=== PATIENT | male | born 1995 | race Caucasian/White ===

== ENCOUNTER 2022-07-10 03:26 | Emergency (ER) | payer BC, SELFPAY ==
[2022-07-10 03:33] VITALS: BP 131/89; PULSE 76; RESP 16; TEMP 36.1; O2SAT 97
--- NOTE | 2022-07-10 03:58 | ED.GENADULT ---
HPI - General Adult General Time Seen by Provider: 03:59 Date Seen: 07/10/22 Chief complaint: Chest Pain Stated complaint: Chest Pain Time Seen by Provider: 07/10/22 03:44 Source: patient Mode of arrival: ambulatory Limitations: no limitations History of Present Illness HPI narrative: 27-year-old male who comes in today with chest pain. Patient developed left-sided chest pain about 2 hours ago that radiates straight through into the back. He describes this as sharp and stabbing. Fairly constant, not worse with breathing or movement. Did have some nausea but no vomiting. No cough, no fever. Has not taken any medication for this. Denies abdominal pain. Family history of diabetes, hypertension, and ?heart problems?. History of smoking but currently vapes. Related Data Allergies Allergy/AdvReac Type Severity Reaction Status Date / Time amoxicillin Allergy Mild Verified 07/10/22 03:36 Review of Systems Status of ROS: Reports: 10 or more systems reviewed and unremarkable except as noted in History and below PFSH PFSH Social History Smoking Status: Never smoker Do you use any of these nicotine containing products: None Second hand tobacco smoke exposure: No How often do you have a drink containing alcohol: monthly or less How often do you have six or more drinks on one occasion: Never AUDIT-C Alcohol total score: 1 Non-prescribed substance use: marijuana (any form) service: No Exam Const: Vital Signs, click to edit/add: Vital Signs - 24 hr 07/10/22 03:33 07/10/22 06:00 07/10/22 05:00 Temperature 97.0 F L Pulse Rate [Left P ulse Oximeter] 76 66 66 Respiratory Rate 16 16 16 Blood Pressure [Ri ght Upper Arm] 131/89 114/78 113/69 Pulse Oximetry 97 98 97 Oxygen Delivery Me thod Room Air Room Air Room Air 07/10/22 04:40 07/10/22 04:00 Temperature Pulse Rate [Left P ulse Oximeter] 75 81 Respiratory Rate 16 16 Blood Pressure [Ri ght Upper Arm] 121/69 138/96 H Pulse Oximetry 95 97 Oxygen Delivery Me thod Room Air Room Air Documenting provider has reviewed patient's vital signs: yes Common normals: no apparent distress, oriented x3, alert and well nourished HENMT: Common normals: normocephalic, head/scalp atraumatic, external ears normal and external nose normal Head and scalp: normocephalic and atraumatic Nose: external nose normal External ear: external ears normal Eye: Common normals: PERRL and conjunctivae normal Conjunctiva: conjunctiva(e) normal Pupil: PERRL Neck & C-Spine: Common normals: full ROM, no lymphadenopathy and supple Chest: Common normals: palpation of chest normal Resp: Common normals: normal respiratory effort and clear to auscultation bilaterally Auscultation: clear to auscultation bilaterally Cardio: Common normals: regular rate, regular rhythm and no murmurs Rate: regular rate Rhythm: regular rhythm GI: Common normals: Normal to inspection, nondistended, normoactive bowel sounds present, soft to palpation and non-tender Palpation: soft : Common normals: no CVA tenderness Bladder/kidney exam: no CVA tenderness Back & Pelvis: Common normals: no CVA tenderness and thoracic and lumbar spine normal to inspection Extremity: Common normals: normal to inspection, full ROM and no pedal edema Neuro: Common normals: oriented x3, CN's II-XII intact bilaterally and no focal motor deficits Sensorium/orientation: alert Psych: Common normals: mental status grossly normal Skin: Common normals: no rashes or lesions noted General skin exam: no rashes or lesions noted Course Course Hospital Course: Patient seen examined, prior records reviewed. Differential diagnosis includes but not limited to acute coronary syndrome, pulmonary embolism, pneumonia, pericarditis/myocarditis, musculoskeletal pain, hemothorax, pneumothorax. Patient with left-sided chest pain radiating to the back. Initial EKG is reassuring, no tenderness on exam. Perc negative. Labs and x-ray ordered. Reevaluation(s) Reevaluation #1: Labs are reassuring including negative troponin. Chest x-ray is pending. Plan on repeat troponin in about 1 hour and if that is negative, patient is stable for discharge with outpatient follow-up Time: 05:08 Reevaluation #2: Patient recheck, pain is resolved. Discussed plan for repeat troponin and discharge if that is reassuring. Patient is agreeable. Time: 05:41 Reevaluation #3: Repeat troponin is still negative and patient remains pain-free. Patient is stable for discharge with outpatient follow-up with primary care next week. Time: 06:25 Vital Signs Vital signs: Initial Vital Signs Temperature 97.0 F L 07/10/22 03:33 Temperature Source Temporal Artery Scan 07/10/22 03:33 Pulse Rate 76 07/10/22 03:33 Pulse Rhythm 07/10/22 03:33 Respiratory Rate 16 07/10/22 03:33 Blood Pressure 131/89 07/10/22 03:33 Blood Pressure Mean 103 07/10/22 03:33 Blood Pressure Position Sitting 07/10/22 03:33 Pulse Oximetry 97 07/10/22 03:33 Oxygen Delivery Method 07/10/22 03:33 Vital Signs Temperature 97.0 F L 07/10/22 03:33 Pulse Rate 76 07/10/22 03:33 Respiratory Rate 16 07/10/22 03:33 Blood Pressure 131/89 07/10/22 03:33 Pulse Oximetry 97 07/10/22 03:33 Oxygen Delivery Method 07/10/22 03:33 Temperature 97.0 F L 07/10/22 03:33 Pulse Rate 66 07/10/22 06:00 Respiratory Rate 16 07/10/22 06:00 Blood Pressure 114/78 07/10/22 06:00 Pulse Oximetry 98 07/10/22 06:00 Oxygen Delivery Method 07/10/22 06:00 Medical Decision Making Medical Records Medical records reviewed: Yes I reviewed the patient's medical records Lab Data Lab results reviewed: Yes I reviewed the patient's lab results Labs: Lab Results 07/10/22 07/10/22 07/10/22 Range/Units 03:55 04:00 04:00 WBC 10.17 (4.50-11.00) K/uL RBC 5.44 (4.30-5.90) m/uL Hgb 15.7 (13.5-17.5) gm/dL Hct 47.1 (37.0-53.0) % MCV 87 (80-100) fL MCH 29 (26-34) pg MCHC 33 (32-36) gm/dL RDW Coeff of Ángela 11.9 (11.5-15.5) % Plt Count 286 (140-440) K/uL Neut % (Auto) 59.5 (42.0-72.0) % Lymph % (Auto) 30.3 (20-44) % [place] % (Auto) 8.0 (0.0-11.0) % Eos % (Auto) 1.7 (0.0-7.0) % Baso % (Auto) 0.4 (0.0-3.0) % Neut # (Auto) 6.06 (1.7-7.0) K/uL Lymph # (Auto) 3.08 H (0.90-2.90) K/uL [place] # (Auto) 0.80 (0.00-0.90) K/UL Eos # (Auto) 0.17 (0.00-0.50) K/uL Baso # (Auto) 0.04 (0.00-0.30) K/uL Abs Immat Gran (auto) 0.01 (0.00-0.30) K/uL Sodium 140 (135-149) mmol/L Potassium 4.0 (3.6-5.1) mmol/L Chloride 106 (96-114) mmol/L Carbon Dioxide 26 (20-32) mmol/L BUN 15 (5-24) mg/dL Creatinine 0.9 (0.5-1.5) mg/dL Estimated GFR 120 ml/min Glucose 100 (60-115) mg/dL Calcium 9.2 (8.4-10.6) mg/dL C-Reactive Protein 0.7 (0.5-1.0) mg/dL NT-Pro-B Natriuret Pep 17 (0-125) PG/mL POC Troponin I 0.00 L (0.01-0.04) ng/ml 07/10/22 Range/Units 06:00 WBC (4.50-11.00) K/uL RBC (4.30-5.90) m/uL Hgb (13.5-17.5) gm/dL Hct (37.0-53.0) % MCV (80-100) fL MCH (26-34) pg MCHC (32-36) gm/dL RDW Coeff of Ángela (11.5-15.5) % Plt Count (140-440) K/uL Neut % (Auto) (42.0-72.0) % Lymph % (Auto) (20-44) % [place] % (Auto) (0.0-11.0) % Eos % (Auto) (0.0-7.0) % Baso % (Auto) (0.0-3.0) % Neut # (Auto) (1.7-7.0) K/uL Lymph # (Auto) (0.90-2.90) K/uL [place] # (Auto) (0.00-0.90) K/UL Eos # (Auto) (0.00-0.50) K/uL Baso # (Auto) (0.00-0.30) K/uL Abs Immat Gran (auto) (0.00-0.30) K/uL Sodium (135-149) mmol/L Potassium (3.6-5.1) mmol/L Chloride (96-114) mmol/L Carbon Dioxide (20-32) mmol/L BUN (5-24) mg/dL Creatinine (0.5-1.5) mg/dL Estimated GFR ml/min Glucose (60-115) mg/dL Calcium (8.4-10.6) mg/dL C-Reactive Protein (0.5-1.0) mg/dL NT-Pro-B Natriuret Pep (0-125) PG/mL POC Troponin I 0.02 (0.01-0.04) ng/ml Imaging Data Chest x-ray: Attestation: I have reviewed the pertinent imaging results. ECG Data Attestation: I personally reviewed and interpreted this ECG as follows: Prior ECG tracings: not available for review Interpretation: Performed at 3:45 a.m. demonstrates normal sinus rhythm rate 70, no acute ST elevations or depressions, normal intervals, normal axis, QTC 414. No prior for comparison. Discharge Plan Discharge Clinical Impression: Chest pain Patient Disposition: Home, Self-Care Condition: Improved Instructions: Chest Pain (DC) Additional Instructions: Take Tylenol and ibuprofen as needed for pain. Follow-up with primary care within 1 week. Return to the emergency department if he developed chest pain not improved with Tylenol or ibuprofen, or if it radiates into your jaw or you of accompanying shortness of breath or other concerns. Activity Level: No Restrictions Discharge Diet: Regular Stand Alone Forms: [employer] Info Instructions
[2022-07-10 04:00] VITALS: BP 138/96; PULSE 81; RESP 16; O2SAT 97
--- NOTE | 2022-07-10 04:06 | CRLHL7_ITS ---
For Patients: As a result of the Cures Act, medical imaging exams and procedure reports are released immediately into your electronic medical record. You may view this report before your referring provider. If you have questions, please contact your health care provider. INDICATION: Chest pain COMPARISON: None TECHNIQUE: PA and lateral views of the chest were acquired FINDINGS: TUBES AND LINES: None. HEART AND MEDIASTINUM: The heart size is normal. The mediastinal contour appears normal for patient age. LUNGS AND PLEURAL SPACES: The lungs appear normal.The pleural spaces are unremarkable. OSSEOUS STRUCTURES: Age-appropriate appearance. No acute focal finding. IMPRESSION: No evidence of active pulmonary disease. Dictated by Faisal Bartlett MD @ 07/10/2022 5:57:02 AM (Electronically Signed)
[2022-07-10] MEDS: 0.9 % SODIUM CHLORIDE 1000 ml 1,000 ML IV (04:10)
[2022-07-10] MEDS: ASPIRIN 81 MG TAB.CHEW 324 MG PO (04:15)
[2022-07-10] MEDS: KETOROLAC 15 MG/ML inj IVP (04:15)
[2022-07-10 04:24] LABS: Basophils Absolute Auto 0.04 K/uL (0.00-0.30); Basophils Percent Auto 0.4 % (0.0-3.0); Eosinophils Absolute Auto 0.17 K/uL (0.00-0.50); Eosinophils Percent Auto 1.7 % (0.0-7.0); Hematocrit 47.1 % (37.0-53.0); Hemoglobin* 15.7 gm/dL (13.5-17.5); Immature Granulocytes Abs Auto 0.01 K/uL (0.00-0.30); Lymphocytes Absolute Auto 3.08 K/uL (0.90-2.90); Lymphocytes Percent Auto 30.3 % (20-44); Mean Corpuscular HGB Conc 33 gm/dL (32-36); Mean Corpuscular Hemoglobin 29 pg (26-34); Mean Corpuscular Volume 87 fL (80-100); Neutrophils Absolute Auto 6.06 K/uL (1.7-7.0); Neutrophils Percent Auto 59.5 % (42.0-72.0); Platelet Count* 286 K/uL (140-440); RDW Coefficient of Variation % 11.9 % (11.5-15.5); Red Blood Count 5.44 m/uL (4.30-5.90); White Blood Count* 10.17 K/uL (4.50-11.00)
[2022-07-10 04:25] LABS: Slide Review Reflex No
[2022-07-10 04:37] LABS: Chloride* 106 mmol/L (96-114); Sodium* 140 mmol/L (135-149)
[2022-07-10 04:40] VITALS: BP 121/69; PULSE 75; RESP 16; O2SAT 95
[2022-07-10 04:40] LABS: Creatinine* 0.9 mg/dL (0.5-1.5); Estimated Glomerular Filt Rate 120 ml/min
[2022-07-10 04:41] LABS: Blood Urea Nitrogen* 15 mg/dL (5-24); Calcium* 9.2 mg/dL (8.4-10.6); Carbon Dioxide* 26 mmol/L (20-32); Glucose* 100 mg/dL (60-115)
[2022-07-10 04:44] LABS: C Reactive Protein* 0.7 mg/dL (0.5-1.0)
[2022-07-10 04:50] LABS: NT Pro B Type NatriureticPept* 17 PG/mL (0-125)
[2022-07-10 05:00] VITALS: BP 113/69; PULSE 66; RESP 16; O2SAT 97
[2022-07-10 06:00] VITALS: BP 114/78; PULSE 66; RESP 16; O2SAT 98
[2022-07-10 06:15] LABS: Troponin, Point-of-Care* 0.02 ng/ml (0.01-0.04)
== END 2022-07-10 06:42 | disposition home or self-care (01) ==
PROVIDERS: Emergency Provider Family Medicine
DX: R07.9 Chest pain, unspecified (principal)
CPT/HCPCS: 36415; 71046; 80048; 83880; 84484; 85025; 86140; 93005; 96361; 96374; 99284; A9270; J1885; J7030

== ENCOUNTER 2024-02-10 19:05 | Emergency (ER) | payer OTHER, SELFPAY ==
[2024-02-10 19:16] VITALS: BP 155/84; PULSE 79; RESP 18; TEMP 36.7; O2SAT 99; BMI 43.0
--- NOTE | 2024-02-10 19:42 | ED_ITS ---
HPI - Abdominal Pain General Chief Complaint: Abdominal Pain Stated Complaint: abdomen pain Time Seen by Provider: 02/10/24 19:06 History of Present Illness HPI narrative: This 28-year-old male comes in reporting some abdominal pain around his umbilicus. He states that he did have a hernia repair in the umbilical region previously. He reports that it was a stitch that was placed in the was no mesh used in the repair. He was at work yesterday and lifted something and felt a tearing sensation around the inferior aspect of his umbilicus. He states that he feels these symptoms little more intensely when an upright or bearing down position or maneuver. He does not report any vomiting or diarrhea. Related Data Home Medications Medication Instructions Recorded Confirmed buspirone 10 mg tablet 10 mg PO DAILY 02/10/24 02/10/24 lithium carbonate 300 mg capsule 300 mg PO DAILY 02/10/24 02/10/24 methylphenidate HCl 36 mg 36 mg PO DAILY 02/10/24 02/10/24 tablet,extended release 24 hr Allergies Allergy/AdvReac Type Severity Reaction Status Date / Time amoxicillin Allergy Mild Hives Verified 02/10/24 19:21 cefaclor [From [facility]] Allergy Mild Hives Verified 02/10/24 19:21 Review of Systems Status of ROS Reports: 10 or more systems reviewed and unremarkable except as noted in History and below Narrative Constitutional: No fevers, no weight gain or loss. Eyes: No discharge. No vision changes. HENT: No congestion, no sore throat, no ear pain. Cardiovascular: No chest pain, no palpitations. Respiratory: No shortness of breath, no wheezes, no cough. Gastrointestinal: No vomiting, no diarrhea. Abdominal discomfort as described above. Genitourinary: No dysuria, no hematuria. Musculoskeletal: Normal range of motion. Skin: No rashes, no pruritis. Neurological: No dizziness, weakness, sensory change, speech change. Endo/Heme/Allergies: No bruising or bleeding. No polydipsia. Pysch: no suicidality, no anxiety, no insomnia. All other systems reviewed and are negative. [facility] Social History Smoking Status: Never smoker Do you use any of these nicotine containing products: None Second hand tobacco smoke exposure: No How often do you have a drink containing alcohol: monthly or less How often do you have six or more drinks on one occasion: Never AUDIT-C Alcohol total score: 1 Non-prescribed substance use: marijuana (any form) service: No Exam Narrative: Exam Narrative: Constitutional: Well-developed, well-nourished, no acute distress. HEENT: Normocephalic, atraumatic. Neck: Normal range of motion. Nontender. Supple. Heart: Regular. No murmurs. Normal rate. Intact distal pulses. Lungs: Clear to auscultation. No chest discomfort. No wheezes, rhonchi, or rales. Abdomen: Normal bowel sounds. Mild tenderness in the inferior aspect of the umbilicus. No palpable herniation. No rebound tenderness. Genitalia: Deferred. Back: No midline tenderness. Normal range of motion. Extremities: Normal range of motion. No injury. Skin: Intact. No rash. Warm. No erythema or pallor. Neurologic: No altered sensation. No weakness. Alert and oriented. Psychiatric: No suicidality. No anxiety or depression. No insomnia. Nursing notes and vitals signs are reviewed. Const: Vital Signs, click to edit/add: Vital Signs - 24 hr 02/10/24 19:16 Temperature 98.1 F Pulse Rate [Right Pulse Oximeter] 79 Respiratory Rate 18 Blood Pressure [Ri ght Upper Arm] 155/84 H Pulse Oximetry 99 Oxygen Delivery Me thod Room Air Course Vital Signs Vital signs: Initial Vital Signs Temperature 98.1 F 02/10/24 19:16 Temperature Source Temporal Artery Scan 02/10/24 19:16 Pulse Rate 79 02/10/24 19:16 Respiratory Rate 18 02/10/24 19:16 Blood Pressure 155/84 H 02/10/24 19:16 Blood Pressure Mean 107 H 02/10/24 19:16 Blood Pressure Position Sitting 02/10/24 19:16 Pulse Oximetry 99 02/10/24 19:16 Oxygen Delivery Method Room Air 02/10/24 19:16 Vital Signs Temperature 98.1 F 02/10/24 19:16 Pulse Rate 79 02/10/24 19:16 Respiratory Rate 18 02/10/24 19:16 Blood Pressure 155/84 H 02/10/24 19:16 Pulse Oximetry 99 02/10/24 19:16 Oxygen Delivery Method Room Air 02/10/24 19:16 Temperature 98.1 F 02/10/24 19:16 Pulse Rate 79 02/10/24 19:16 Respiratory Rate 18 02/10/24 19:16 Blood Pressure 155/84 H 02/10/24 19:16 Pulse Oximetry 99 02/10/24 19:16 Oxygen Delivery Method Room Air 02/10/24 19:16 MDM - Abdominal Pain MDM Narrative Medical decision making narrative: This patient has a history of an umbilical hernia that was repaired previously. He comes in with pain in this same area after doing some strenuous activity at work yesterday. He wonders if he has developed another hernia. There is no palpable herniation on exam. Patient is not in any particular distress. Pain is reproduced when in an upright position or when bearing down. I did discuss the role of CT imaging but indicated that that study will not likely change the treatment plan for now. In a process of shared decision-making he declined any imaging studies for now. He did receive an abdominal binder and I provided a return to work note. He does have a follow-up appointment with his primary physician in 4 days. I did describe signs and symptoms that would indicate a need to return for imaging and re-evaluation. Discharge Plan Discharge Clinical Impression: Abdominal pain Patient Disposition: Home, Self-Care Condition: Stable Additional Instructions: Wear abdominal binder as needed and indicated. Activity as tolerated. Follow up with MD as scheduled or return if worsening. Prescriptions: No Action methylphenidate HCl 36 mg tablet extended release 24hr 36 mg PO DAILY lithium carbonate 300 mg capsule 300 mg PO DAILY buspirone 10 mg tablet 10 mg PO DAILY Follow Up/Referrals: Provider,Not a Local [Primary Care Provider] - Stand Alone Forms: [employer] Info Instructions
[2024-02-10 20:31] VITALS: BP 145/78; PULSE 74; RESP 18; TEMP 36.7; O2SAT 99
[2024-02-10 20:33] VITALS: BP 145/78; PULSE 74; RESP 18; TEMP 36.7
== END 2024-02-10 20:33 | disposition home or self-care (01) ==
LOC: ED 19:54
PROVIDERS: Emergency Provider Emergency Medicine Emergency Medical Services
DX: R10.33 Periumbilical pain (principal)
CPT/HCPCS: 99283; 99284